=== PATIENT | male | born 1945 | race Caucasian/White ===

== ENCOUNTER 2018-11-05 17:47 | Emergency (ER) | payer MEDICARE, BC ==
[~2018-11-05] VITALS: Ht 177.8 cm; Wt 80.7 kg
[2018-11-05] MEDS ORDERED: DEXL60CA3 PO (18:33)
[2018-11-05] MEDS ORDERED: SITA1TAB6 PO (18:33)
[2018-11-05] MEDS ORDERED: FOLI1TAB16 PO (18:33)
[2018-11-05] MEDS ORDERED: CYAN-51 PO (18:33)
[2018-11-05] MEDS ORDERED: ALFU10TA PO (18:33)
[2018-11-05] MEDS ORDERED: ROSU5TAB PO (18:33)
[2018-11-05] MEDS ORDERED: RAMI5CAP30 PO (18:33)
--- NOTE | 2018-11-05 19:10 | NUR ---
DR POWERS AT BEDSIDE FOR EVAL... HAND OFF REPORT GIVEN TO JANEEN HPAN RN
--- NOTE | 2018-11-05 19:12 | NUR ---
RECEIVED SHIFT REPORT FROM TONIA CHARLES.
--- NOTE | 2018-11-05 19:31 | NUR ---
ANNOUNCER AT BEDSIDE.
[2018-11-05 19:47] LABS: BASOPHILS % (AUTO) 0.1 % (0.0-2.0); EOSINOPHILS % (AUTO) 0.3 % (0.0-7.0); HEMATOCRIT 42.3 % (36.7-47.1); LYMPHOCYTES # (AUTO) 0.2 K/uL (20.0-40.0); LYMPHOCYTES % (AUTO) 2.7 % (20.5-51.5); MEAN CORPUSCULAR HEMOGLOBIN 28.6 uug (23.8-33.4); MEAN CORPUSCULAR HGB CONC 33 g/dL (32.5-36.3); MEAN CORPUSCULAR VOLUME 86.1 fL (73.0-96.2); MONOCYTES # (AUTO) 0.4 K/uL (2.0-10.0); MONOCYTES % (AUTO) 4.8 % (0.0-11.0); NEUTROPHILS # (AUTO) 6.8 K/uL (1.8-8.9); NEUTROPHILS % (AUTO) 92.1 % (38.5-71.5); PLATELET COUNT (AUTO) 150 K/uL (152-348); RED BLOOD CELL COUNT(AUTO) 4.91 MIL/uL (4.06-5.63); WHITE BLOOD COUNT (AUTO) 7.4 K/uL (3.6-10.2)
[2018-11-05 19:53] LABS: CARBON DIOXIDE 24 mmol/L (21-32); CHLORIDE 102 mmol/L (98-107); CREATININE 1.5 mg/dL (0.6-1.3); GLUCOSE 128 mg/dL (74-106); POTASSIUM 3.8 mmol/L (3.5-5.1); UREA NITROGEN, BLOOD 32 mg/dL (7-18)
[2018-11-05] MEDS ORDERED: METOCLOPRAMIDE HCL 10 MG/2 ML VIAL ONE (19:57)
[2018-11-05] MEDS ORDERED: KETOROLAC TROMETHAMINE 30 MG INJ ONE (19:57)
[2018-11-05] MEDS ORDERED: KETOROLAC TROMETHAMINE 15 MG INJ ONE (19:58)
[2018-11-05 19:59] LABS: ALANINE AMINOTRANSFERASE 24 U/L (16-63); ALKALINE PHOSPHATASE 56 U/L (50-136); ASPARTATE AMINOTRANSFERASE 14 U/L (15-37); BILIRUBIN,DIRECT 0.3 mg/dL (0.0-0.2); BILIRUBIN,TOTAL 1.6 mg/dL (0.2-1.0); LIPASE 468 U/L (73-393); TOTAL PROTEIN, SERUM 7.1 g/dL (6.4-8.2)
[2018-11-05] MEDS ORDERED: METOCLOPRAMIDE HCL 10 MG/2 ML VIAL IV ONE (20:00)
[2018-11-05] MEDS ORDERED: IV NORMAL SALINE 1000 ML BAG IV ONE (20:00)
[2018-11-05] MEDS ORDERED: KETOROLAC TROMETHAMINE 15 MG INJ IVP ONE (20:00)
--- NOTE | 2018-11-05 20:00 | NUR ---
PT REFUSING BLOOD CULTURE LAB DRAW AND CT SCANS. ER NOTIFIED.
--- NOTE | 2018-11-05 20:56 | NUR ---
LAURITA WAGNER AT BEDSIDE FOR PT UPDATE.
[2018-11-05 21:09] LABS: *BILIRUBIN,URIN NEGATIVE (NEGATIVE); *BLOOD, URINE NEGATIVE (NEGATIVE); *CLARITY,URINE CLEAR (CLEAR); *COLOR,URINE YELLOW (YELLOW); *KETONES,URINE NEGATIVE (NEGATIVE); *UROBILINOGEN,URINE 0.2 E.U./dl (NORMAL); LEUKOCYTE ESTERASE ,URINE NEGATIVE (NEGATIVE); NITRITE, URINE NEGATIVE (NEGATIVE); PH,URINE 5.5 (5.0-8.0); UGLUCOSE NEGATIVE (NEGATIVE)
[2018-11-05 21:16] LABS: MUCUS,URINE MODERATE /LPF (0-FEW); SQUAMOUS EPITHELIAL CELL,UR FEW /HPF (NONE SEEN); WBC,URINE 0-3 /HPF (0-3)
--- NOTE | 2018-11-05 21:35 | NUR ---
Patient discharged to home in stable conditon. Written and verbal after care instructions given. Patient verbalizes understanding of instructions. ALL BELONGINGS W/ PT. PT SELF-AMBULATED W/O DIFFICULTY. 20G IV ACCESS IN RAC REMOVED PRIOR TO D/C - INNER CANNULA INTACT.
[2018-11-05 21:36] VITALS: BP 112/72
== END 2018-11-05 21:36 | disposition home or self-care (01) ==
LOC: ER 17:47
DX: E86.0 Dehydration (principal); R51 Headache; K21.9 Gastro-esophageal reflux disease without esophagitis; E11.9 Type 2 diabetes mellitus without complications; Z79.899 Other long term (current) drug therapy
CPT/HCPCS: 36415; 71045; 80048; 80076; 81001; 83605; 83690; 84484; 85025; 85730; 93005; 96361; 96374; 96375; 99284; J1885; J2765; 70030-TC; A4663; J7030